=== PATIENT | male | born 1965 | race Caucasian/White ===

== ENCOUNTER → 2017-02-03 | Outpatient (CLI) | payer BC ==
[2017-02-03 13:16] LABS: BASO % 0.5 %; BASO ABS # 0.02 K/uL (0-0.2); COMPLETE YES; EOS % 2.2 %; HEMATOCRIT 46.2 % (42-52); LYMPH ABS # 1.74 K/uL (1.2-3.4); MEAN CELL VOLUME 98.3 fL (80-100); MEAN CORPUSCULAR HEMOGLOBIN 33.8 pg (25-34); MEAN CORPUSCULAR HGB CONC 34.4 g/dl (32-36); MEAN PLATELET VOLUME 10.7 fL (7.4-10.4); MONO % 9.7 %; NEUT % 40.6 %; PLATELET COUNT 163 K/uL (130-400)
[2017-02-03 13:33] LABS: ALT/SGPT 34 U/L (12-78); AST/SGOT 23 U/L (15-37); BLOOD UREA NITROGEN 19 mg/dl (7-18); BUN/CREATININE RATIO 14.9 (10-20); CALCIUM 8.9 mg/dl (8.5-10.1); CARBON DIOXIDE 31 mmol/L (21-32); CHLORIDE 107 mmol/L (98-107); GLUCOSE 95 mg/dl (70-99); POTASSIUM 3.8 mmol/L (3.5-5.1); SODIUM 141 mmol/L (136-145)
[2017-02-03 13:44] LABS: ALB/GLOB RATIO 1.1 (0.9-2); ALKALINE PHOSPHATASE 75 U/L (45-117); CHOLESTEROL 175 mg/dl (0-200); CHOLESTEROL/HDL RATIO 2.9; HDL CHOLESTEROL 60 mg/dl; LDL CHOLESTEROL CALCULATED 101 mg/dl; PROSTATE SPECIFIC ANTIGEN 0.761 ng/ml (0.000-4.000); TRIGLYCERIDES 69 mg/dl (0-150); VERY LOW DENSITY LIPOPROT CALC 14 mg/dl
== END | disposition home or self-care (01) ==
LOC: C.LABMFLN 07:28
PROVIDERS: ATTEND Family Medicine
DX: Z12.5 Encounter for screening for malignant neoplasm of prostate (principal); D12.6 Benign neoplasm of colon, unspecified; E78.5 Hyperlipidemia, unspecified

== ENCOUNTER → 2018-02-07 | Outpatient (CLI) | payer BC ==
[2018-02-07 13:11] LABS: BASO % 0.5 %; BASO ABS # 0.02 K/uL (0-0.2); EOS % 1.9 %; EOS ABS # 0.08 K/uL (0-0.5); HEMATOCRIT 46.3 % (42-52); HEMOGLOBIN 15.8 g/dL (14.0-18.0); IG# 0.01 K/uL (0.00-0.02); LYMPH ABS # 1.81 K/uL (1.2-3.4); MEAN CELL VOLUME 97.1 fL (80-100); MEAN CORPUSCULAR HEMOGLOBIN 33.1 pg (25-34); MEAN CORPUSCULAR HGB CONC 34.1 g/dl (32-36); MEAN PLATELET VOLUME 11.4 fL (7.4-10.4); MONO % 10.9 %; MONO ABS # 0.46 K/uL (0.11-0.59); NEUT % 43.5 %; NEUT ABS # 1.83 K/uL (1.4-6.5); PLATELET COUNT 162 K/uL (130-400); RED CELL DISTRIBUTION WIDTH CV 13.2 % (11.5-14.5); RED CELL DISTRIBUTION WIDTH SD 46.7 fL (36.4-46.3); WHITE BLOOD COUNT 4.21 K/uL (4.8-10.8)
[2018-02-07 14:22] LABS: BLOOD UREA NITROGEN 27 mg/dl (7-18); CALCIUM 9.2 mg/dl (8.5-10.1); CARBON DIOXIDE 28 mmol/L (21-32); CHOLESTEROL 198 mg/dl (0-200); CREATININE 1.23 mg/dl (0.60-1.40); GLUCOSE 95 mg/dl (70-99); LDL CHOLESTEROL CALCULATED 121 mg/dl; PHOSPHORUS 1.6 mg/dl (2.5-4.9); POTASSIUM 4.3 mmol/L (3.5-5.1); SODIUM 139 mmol/L (136-145)
== END | disposition home or self-care (01) ==
LOC: C.LABMFLN 07:31
PROVIDERS: ATTEND Family Medicine
DX: D12.6 Benign neoplasm of colon, unspecified (principal); E78.5 Hyperlipidemia, unspecified

== ENCOUNTER → 2018-02-08 | Outpatient (CLI) | payer BC ==
--- NOTE | 2018-02-08 13:34 | DIAGNOSTIC IMAGING REPORT ---
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 Edema. TECHNIQUE: Venous Doppler COMPARISON STUDY: None FINDINGS: Normal study. No evidence for venous insufficiency. Compressibility and augmentation characteristics are unremarkable. IMPRESSION: 1. Normal study. 2. No evidence for venous insufficiency. The above report was generated using voice recognition software. It may contain grammatical, syntax or spelling errors. Electronically signed by: Rizwan Cali M.D. 02/08/2018 1:33 PM Dictated Date/Time: 02/08/2018 1:32 PM
== END | disposition home or self-care (01) ==
LOC: C.ULTR 12:13
PROVIDERS: ATTEND Family Medicine
DX: I83.899 Varicose veins of unspecified lower extremity with other complications (principal)

== ENCOUNTER → 2018-03-05 | Outpatient (CLI) | payer BC | END | disposition home or self-care (01) | LOC: C.LABMFLN 07:03 | PROVIDERS: ATTEND Family Medicine | DX: E83.39 Other disorders of phosphorus metabolism (principal) ==